=== PATIENT | female | born 1965 | race Caucasian/White ===

== ENCOUNTER 2017-08-01 09:18 | Day surgery (SDC) | payer BC ==
[2017-08-01 09:19] LABS: Absolute Lymphocytes (CBC) 1.2 K/uL (0.7-4.9); Absolute Monocytes 0.5 K/uL (0.1-1.3); Absolute Neutrophil 4.3 K/uL (1.8-8.0); Eosinophils % 3.1 % (0-4.4); Hematocrit 38.1 % (36.0-45.0); Lymphocytes % 19.4 % (15.3-44.8); MCH 25.8 pg (27.0-35.0); MCV 77.3 fL (80-100); MPV 7.8 fL (7.6-11.3); Monocytes % 7.3 % (3.3-12.3); RBC Red Blood Cell Count 4.93 M/uL (3.86-4.86)
--- NOTE | 2017-08-01 09:22 | RAD REPORT ---
EXAM DESCRIPTION: RAD - Chest Pa And Lat (2 Views) - 08/01/2017 9:13 am CLINICAL HISTORY: Preop chest, pending lithotripsy COMPARISON: None. TECHNIQUE: PA and lateral views of the chest were obtained. FINDINGS: The lungs are clear. Heart size is normal and central vasculature is within normal limit s. No pleural effusion or pneumothorax seen. No acute bony finding noted. No aortic abnormality. IMPRESSION: No acute cardiopulmonary process.
[2017-08-01 09:23] LABS: Urine Appearance CLEAR; Urine Bilirubin NEGATIVE (NEG); Urine Blood NEGATIVE (NEG); Urine Color YELLOW; Urine Glucose NEGATIVE (NEG); Urine Protein NEGATIVE (NEG)
[2017-08-01 09:23] LABS: Protime INR 1.06
--- NOTE | 2017-08-01 09:26 | RAD REPORT ---
EXAM DESCRIPTION: RAD - Abdomen 1 View ([facility]) - 08/01/2017 9:14 am CLINICAL HISTORY: Kidney stone, pending lithotripsy COMPARISON: [facility] July 28, CT abdomen and pelvis July 28 FINDINGS: The left pelvic floor calcification seen July 28 is no longer identifiable and is presumed to have passed. No finding to indicate retained stone within the urinary bladder. Left mid pelvic ca lcification has not changed and corresponds to a non system phlebolith. Punctate caliceal calcific ations in the left kidney are still present. The 5 mm calcification lower pole right kidney is still present. Bowel gas pattern is nonspecific. No significant bony findings IMPRESSION: Previously detailed left UVJ calculus left-side pelvic floor is no longer present and is presumed to have passed. No suspicion for retention of the stone within the bladder. Punctate left-side renal calculi stable and the 5 mm lower pole right renal calculus is stable.
--- NOTE | 2017-08-01 09:28 | EKG ---
Test Date: 2017-08-01 Test Time: 08:54:48 [employer]: VICENTA MEASUREMENT RESULTS: Intervals: Rate: 52 ME: 130 QRSD: 94 QT: 424 QTc: 394 [place]: P: 44 ME: 130 QRS: 47 T: 35 INTERPRETIVE STATEMENTS: Sinus bradycardia Otherwise normal ECG Compared to ECG 12/18/2003 08:17:00 Sinus rhythm no longer present Electronically Signed On 08-01-17 09:27:32 CDT by Tyrone Solis
[2017-08-01 09:32] LABS: Urine Microscopic Reflex ORDER UMIC
[2017-08-01] MEDS ORDERED: Ringers Lactate 1,000 ML IV ONE (09:41)
[2017-08-01] MEDS ORDERED: GENTAMICIN 100 MG/100 ML BAG 100 MG/100 ML BAG IV ONE (09:41)
[2017-08-01 09:42] LABS: Potassium 4.8 mEq/L (3.6-5.0)
[2017-08-01 09:46] LABS: Phosphorus 3.6 mg/dL (2.5-4.3); Uric Acid 5.2 mg/dL (2.6-8.0)
[2017-08-01 10:10] LABS: Urine Bacteria 20-50 /HPF (<20); Urine Culture Reflex Order REFLEXED; Urine RBC <5 /HPF (NONE SEEN)
[2017-08-01] MEDS ORDERED: MIDAZOLAM HCL 2 MG/2 ML INJ ONE (11:16)
[2017-08-01] MEDS ORDERED: FENTANYL CITR 100 MCG/2 ML ONE (11:33)
[2017-08-01] MEDS ORDERED: LIDOCAINE 1% MPF 5 ML VIAL ONE ×2 (11:33)
[2017-08-01] MEDS ORDERED: PROPOFOL 200 MG/20 ML VIAL IV ONE (11:33)
[2017-08-01] MEDS ORDERED: EPHEDRINE SULF 50 MG/5 ML SYR ONE (11:51)
[2017-08-01] MEDS ORDERED: KETOROLAC 30 MG/ML INJ ONE (12:08)
== END 2017-08-01 14:15 | disposition home or self-care (01) ==
LOC: OR 09:18
PROVIDERS: ATTEND Urology
PROC: 0TF3XZZ Fragmentation in Right Kidney Pelvis, External Approach (ICD-10-PCS; principal; 2017-08-01 12:30)
DX: N20.2 Calculus of kidney with calculus of ureter (principal); I10 Essential (primary) hypertension; E78.00 Pure hypercholesterolemia, unspecified
CPT/HCPCS: 36415; 50590; 71046; 74018; 80048; 81003; 81015; 81025; 84100; 84550; 85025; 85610; 85730; 87086; 87088; 93005; J1580; J2250; J3010